=== PATIENT | male | born 1955 | race Caucasian/White ===

== ENCOUNTER 2022-04-12 12:25 | Inpatient (IN) | payer MEDICARE, MEDICAID ==
[~2022-04-12] VITALS: Ht 172.7 cm; Wt 56.3 kg
[2022-04-12] MEDS ORDERED: ONDANSETRON HCL 4 MG/2 ML VIAL IV ONE (13:30)
[2022-04-12] MEDS ORDERED: MORPHINE SULFATE 4 MG/ML SYR/VIAL IV ONE (13:30)
[2022-04-12 14:48] LABS: INR 1.14 (0.9-1.15); Partial Thromboplastin Time 31.4 sec (24.6-33.4)
[2022-04-12 15:01] LABS: Albumin 1.9 g/dL (3.4-5.0); Calcium 7.8 mg/dL (8.5-10.1); Potassium 4.7 mmol/L (3.5-5.1)
[2022-04-12 15:08] LABS: BUN/Creatinine Ratio 23.2; Bilirubin, Total 0.6 mg/dL (0.2-1.0); CRP High Sensitivity 11.7 mg/dL (< 0.3); Total Protein 7.2 g/dL (6.4-8.2)
[2022-04-12 15:22] LABS: Eosinophils # (auto) 0 10 ^3/uL (0-0.8); Lymphocytes # (auto) 1.3 10 ^3/uL (0.4-5.4); Mean Corpuscular Volume 83.8 fL (80.0-100.0); Monocytes # (auto) 1.6 10 ^3/uL (0-1.3); Neutrophils % (auto) 83.9 % (37.0-80.0); White Blood Cell 19.1 10^3/uL (4.4-10.8)
[2022-04-12 15:24] LABS: Basophils # (auto) 0.1 10 ^3/uL (0-0.2); Basophils % (auto) 0.7 % (0.0-2.0); Eosinophils % (auto) 0.1 % (0.0-7.0); Hematocrit 31.5 % (41.0-53.0); Mean Corpuscular Hemoglobin 26.6 pg (28.0-32.0); Mean Corpuscular Hgb Conc. 31.7 g/dL (32.0-36.0); Monocytes % (auto) 8.3 % (0.0-12.0); Nucleated Red Blood Cells % 0.1 %; Red Blood Cells 3.76 10^6/uL (4.5-5.90); Red Cell Distribution Width 14.4 % (11.8-14.3)
[2022-04-12] MEDS ORDERED: CEFEPIME 2 GM in SODIUM CHL 0.9% 50 ML IV ONE (16:30)
[2022-04-12] MEDS ORDERED: VANCOMYCIN PER PHARMACY 0 MG IV SCH (16:30)
[2022-04-12] MEDS ORDERED: DOCUSATE SOD 100 MG CAP PO PRN (17:00)
[2022-04-12] MEDS ORDERED: ACETAMINOPHEN 325 MG TAB PO PRN (17:00)
[2022-04-12] MEDS ORDERED: ONDANSETRON HCL 4 MG/2 ML VIAL IV PRN (17:00)
[2022-04-12] MEDS: SODIUM CHLORIDE 0.9% 1,000 ML IV SCH ×3 (17:00→19:07)
[2022-04-12] MEDS: VANCOMYCIN 750mg/250ml 250 ML IV SCH (18:00)
[2022-04-13 06:29] LABS: Basophils # (auto) 0.1 10 ^3/uL (0-0.2); Basophils % (auto) 0.4 % (0.0-2.0); Eosinophils # (auto) 0 10 ^3/uL (0-0.8); Eosinophils % (auto) 0.1 % (0.0-7.0); Hemoglobin 10.4 g/dL (13.5-17.5); Red Cell Distribution Width 14.4 % (11.8-14.3)
[2022-04-13 06:33] LABS: Hematocrit 31.9 % (41.0-53.0); Lymphocytes # (auto) 1.3 10 ^3/uL (0.4-5.4); Lymphocytes % (auto) 7.6 % (10.0-50.0); Mean Corpuscular Hgb Conc. 32.5 g/dL (32.0-36.0); Monocytes # (auto) 1.3 10 ^3/uL (0-1.3); Monocytes % (auto) 7.7 % (0.0-12.0); Neutrophils # (auto) 14.7 10 ^3/uL (1.6-8.6); Neutrophils % (auto) 84.2 % (37.0-80.0); Nucleated Red Blood Cells % 0.1 %; Red Blood Cells 3.85 10^6/uL (4.5-5.90); White Blood Cell 17.4 10^3/uL (4.4-10.8)
[2022-04-13 06:49] LABS: BUN/Creatinine Ratio 26.7; Calcium 7.8 mg/dL (8.5-10.1)
[2022-04-13 07:01] LABS: Albumin 1.7 g/dL (3.4-5.0); Bilirubin, Total 0.4 mg/dL (0.2-1.0); Total Protein 6.2 g/dL (6.4-8.2)
[2022-04-13] MEDS: PIPERACILLIN-TAZOB 3.375GM 100 ML IV SCH ×3 (09:37→22:15)
[2022-04-13] MEDS ORDERED: ENOXAPARIN SOD 40 MG/0.4 ML SYRINGE SC SCH (10:00)
[2022-04-13] MEDS: ATORVASTATIN 20 MG TAB PO SCH (11:15)
[2022-04-13] MEDS: CLOPIDOGREL BISULFATE 75 MG TAB PO SCH (11:16)
[2022-04-13] MEDS: VANCOMYCIN 750mg/250ml 250 ML IV SCH (12:46)
[2022-04-13] MEDS ORDERED: HEPARIN SODIUM (PORCINE) 5000 UNITS/ML 1ML VIAL IV ONE (14:00)
[2022-04-13] MEDS ORDERED: HEPARIN DRIP/D5W 100UNITS/ML 250 ML IV SCH ×2 (14:26→16:00)
[2022-04-13 14:40] LABS: Cholesterol 104 mg/dL (< 200)
[2022-04-13 14:43] LABS: HDL Cholesterol 23 mg/dL (40-59); LDL Cholesterol 73 mg/dL (< 100); Triglycerides 58 mg/dL (< 150)
[2022-04-13 14:51] LABS: INR 1.19 (0.9-1.15)
[2022-04-13] MEDS: ALBUMIN 25% 100 ML IV SCH ×2 (15:50→20:55)
[2022-04-13 16:51] LABS: Basophils # (auto) 0.1 10 ^3/uL (0-0.2); Basophils % (auto) 0.6 % (0.0-2.0); Eosinophils # (auto) 0 10 ^3/uL (0-0.8); Eosinophils % (auto) 0.2 % (0.0-7.0); Hematocrit 28.8 % (41.0-53.0); Hemoglobin 9.4 g/dL (13.5-17.5); Lymphocytes # (auto) 1.3 10 ^3/uL (0.4-5.4); Lymphocytes % (auto) 7.6 % (10.0-50.0); Mean Corpuscular Hemoglobin 27.7 pg (28.0-32.0); Mean Corpuscular Hgb Conc. 32.8 g/dL (32.0-36.0); Mean Corpuscular Volume 84.3 fL (80.0-100.0); Monocytes # (auto) 1.3 10 ^3/uL (0-1.3); Monocytes % (auto) 7.8 % (0.0-12.0); Neutrophils # (auto) 13.9 10 ^3/uL (1.6-8.6); Neutrophils % (auto) 83.8 % (37.0-80.0); Nucleated Red Blood Cells % 0.1 %; Red Blood Cells 3.41 10^6/uL (4.5-5.90); Red Cell Distribution Width 14.7 % (11.8-14.3); White Blood Cell 16.6 10^3/uL (4.4-10.8)
[2022-04-13 17:26] LABS: BUN/Creatinine Ratio 26.3; Calcium 7.3 mg/dL (8.5-10.1); Potassium 3.9 mmol/L (3.5-5.1)
[2022-04-13] MEDS ORDERED: ENOXAPARIN SOD 60 MG/0.6 ML SYRINGE SC SCH (22:00)
[2022-04-14] VITALS (7 sets, daily range): BP systolic 96–135; BP diastolic 55–69
[2022-04-14 00:04] LABS: INR 1.16 (0.9-1.15); Partial Thromboplastin Time 60.2 sec (24.6-33.4)
[2022-04-14 00:20] LABS: Alcohol, Urine < 3.0 mg/dL (0-10); Amphetamine Screen, Urine NEGATIVE (NEGATIVE); Barbiturate Scree,Urine NEGATIVE (NEGATIVE); Benzodiazephine Screen, Urine NEGATIVE (NEGATIVE); Cannabinoid Screen, Urine NEGATIVE (NEGATIVE); Cocaine Screen, Urine NEGATIVE (NEGATIVE); Opiate Scree,Urine NEGATIVE (NEGATIVE); Phencyclidine Screen, Urine NEGATIVE (NEGATIVE)
[2022-04-14] MEDS: MORPHINE SULFATE INJ 2 MG/ml SYRG IV PRN (00:45)
[2022-04-14] MEDS: VANCOMYCIN 750mg/250ml 250 ML IV SCH ×2 (01:26→13:00)
[2022-04-14 01:34] LABS: Urine Bacteria NONE SEEN /hpf (None Seen); Urine Blood Negative /uL (Negative); Urine Mucus FEW (None Seen); Urine Specific Gravity 1.028 (1.001-1.035); Urine WBC 1 /hpf (0 - 3)
[2022-04-14] MEDS: SODIUM CHLORIDE 0.9% 1,000 ML IV SCH ×2 (03:21→21:24)
[2022-04-14] MEDS: ALBUMIN 25% 100 ML IV SCH (03:52)
[2022-04-14 05:14] LABS: INR 1.15 (0.9-1.15); Partial Thromboplastin Time 49.5 sec (24.6-33.4)
[2022-04-14] MEDS: PIPERACILLIN-TAZOB 3.375GM 100 ML IV SCH ×3 (06:17→22:36)
[2022-04-14 07:21] LABS: Albumin 2.6 g/dL (3.4-5.0); BUN/Creatinine Ratio 16.7; Calcium 7.7 mg/dL (8.5-10.1); Phosphorus 2.9 mg/dL (2.5-4.90); Potassium 3.6 mmol/L (3.5-5.1)
[2022-04-14] MEDS: CLOPIDOGREL BISULFATE 75 MG TAB PO SCH (10:00)
[2022-04-14] MEDS ORDERED: SACUBITRIL-VALSARTAN 24mg/26mg TAB PO ONE (10:45)
[2022-04-14] MEDS ORDERED: DAPAGLIFLOZIN 5 MG TAB PO ONE (10:45)
[2022-04-14] MEDS ORDERED: CARVEDILOL 3.125 MG TAB PO ONE (10:45)
[2022-04-14] MEDS ORDERED: IODIXANOL 320MG/ML 100ML BTL IV ONE ×3 (12:11→16:56)
[2022-04-14] MEDS ORDERED: fentaNYL CITRATE 100 MCG/2 ML VL ONE (12:26)
[2022-04-14] MEDS ORDERED: LIDOCAINE HCL 100 MG/5ML (2%) SYRG INJ IV ONE (12:26)
[2022-04-14] MEDS ORDERED: ANGIOMAX 250 MG VIAL IV ONE ×2 (12:26→15:12)
[2022-04-14] MEDS ORDERED: MIDAZOLAM HCL 2MG/2ML 2ml VIAL (1mg/ml) ONE ×2 (12:26→15:16)
[2022-04-14] MEDS ORDERED: SODIUM CHL 0.9% 50 ML ONE ×2 (12:27→15:12)
[2022-04-14] MEDS ORDERED: LIDOCAINE 2%HCL (LOCAL ANESTH.) INJ 10ml MDV ONE (12:29)
[2022-04-14] MEDS ORDERED: hydrALAZINE HCL 20 MG/ML VL ONE ×2 (12:58→13:48)
[2022-04-14] MEDS ORDERED: VERAPAMIL 2.5MG/ML INJ 2ML VIAL IV ONE (13:51)
[2022-04-14] MEDS ORDERED: LABETALOL HCL 5 MG/ML ML 20ML VIAL IV ONE (14:34)
[2022-04-14] MEDS ORDERED: HYDROmorphone HCL 2 MG/ML VL/or syr ONE (16:14)
[2022-04-14] MEDS ORDERED: CLOPIDOGREL 300 MG TAB ONE (17:30)
[2022-04-14] MEDS ORDERED: IBUP600T27 PO (20:59)
[2022-04-14] MEDS ORDERED: GABA100C9 PO (20:59)
[2022-04-14] MEDS: ASPirin 81 mg TAB PO SCH (21:22)
[2022-04-14] MEDS: ATORVASTATIN 20 MG TAB PO SCH (21:23)
[2022-04-14] MEDS: CARVEDILOL 3.125 MG TAB PO SCH (22:37)
[2022-04-14] MEDS: SACUBITRIL-VALSARTAN 24mg/26mg TAB PO SCH (22:38)
[2022-04-15] MEDS: VANCOMYCIN 750mg/250ml 250 ML IV SCH ×2 (02:35→13:31)
[2022-04-15 05:00] VITALS: BP 86/50
[2022-04-15 05:15] VITALS: BP 103/57
[2022-04-15] MEDS: PIPERACILLIN-TAZOB 3.375GM 100 ML IV SCH ×3 (05:31→22:16)
[2022-04-15 06:06] LABS: Anion Gap 8 (5-15); Blood Urea Nitrogen 13 mg/dL (7-18); Calcium 7.6 mg/dL (8.5-10.1); Carbon Dioxide 24 mmol/L (21-32); Chloride 104 mmol/L (98-107); Glucose 130 mg/dL (74-106); Potassium 3.7 mmol/L (3.5-5.1); Sodium 136 mmol/L (136-145)
[2022-04-15 06:09] LABS: BUN/Creatinine Ratio 16.9; GFR African American 129 mL/min; GFR Non-African American 106 mL/min
[2022-04-15 09:00] VITALS: BP 109/60
[2022-04-15] MEDS: CARVEDILOL 3.125 MG TAB PO SCH ×2 (10:00→23:08)
[2022-04-15] MEDS: ASPirin 81 mg TAB PO SCH (11:07)
[2022-04-15] MEDS: ATORVASTATIN 20 MG TAB PO SCH (11:08)
[2022-04-15] MEDS: DAPAGLIFLOZIN 5 MG TAB PO SCH (11:08)
[2022-04-15] MEDS: SACUBITRIL-VALSARTAN 24mg/26mg TAB PO SCH ×2 (11:08→22:16)
[2022-04-15] MEDS: SODIUM CHLORIDE 0.9% 1,000 ML IV SCH (11:09)
[2022-04-15] MEDS: CLOPIDOGREL BISULFATE 75 MG TAB PO SCH (11:09)
[2022-04-15 17:00] VITALS: BP 112/63
[2022-04-15 22:00] VITALS: BP 100/56
[2022-04-15] MEDS: HYDROcodone-ACET 5/325MG TAB PO PRN (22:17)
[2022-04-16] VITALS (16 sets, daily range): BP systolic 92–135; BP diastolic 33–69
[2022-04-16] MEDS: VANCOMYCIN 750mg/250ml 250 ML IV SCH ×2 (01:12→18:54)
[2022-04-16] MEDS: PIPERACILLIN-TAZOB 3.375GM 100 ML IV SCH ×2 (05:37→18:07)
[2022-04-16] MEDS: SODIUM CHLORIDE 0.9% 1,000 ML IV SCH ×2 (05:37→19:00)
[2022-04-16] MEDS: SACUBITRIL-VALSARTAN 24mg/26mg TAB PO SCH ×2 (09:12→22:00)
[2022-04-16] MEDS: CARVEDILOL 3.125 MG TAB PO SCH ×2 (09:13→21:31)
[2022-04-16] MEDS: DAPAGLIFLOZIN 5 MG TAB PO SCH (09:14)
[2022-04-16] MEDS: ATORVASTATIN 20 MG TAB PO SCH (09:14)
[2022-04-16] MEDS: CLOPIDOGREL BISULFATE 75 MG TAB PO SCH (09:14)
[2022-04-16] MEDS: ASPirin 81 mg TAB PO SCH (09:15)
[2022-04-16] MEDS ORDERED: NICOTINE 14 MG/24HR TOPICAL PATCH TD SCH (10:00)
[2022-04-16] MEDS ORDERED: BUPIVACAINE HCL 0.25% P/F 10 ML VIAL ONE (11:54)
[2022-04-16] MEDS ORDERED: MIDAZOLAM HCL 2MG/2ML 2ml VIAL (1mg/ml) ONE (11:57)
[2022-04-16] MEDS ORDERED: fentaNYL CITRATE 100 MCG/2 ML VL ONE (11:57)
[2022-04-16] MEDS ORDERED: ceFAZolin 1GM/50ML 100 ML IV ONE (12:00)
[2022-04-16] MEDS ORDERED: PROPOFOL 10 MG/ML 20 ML IV ONE (12:40)
[2022-04-16] MEDS ORDERED: KETAMINE HCL 10 ML ONE (12:40)
[2022-04-16] MEDS ORDERED: diphenhdrAMINE HCL 50 MG/1 ML VL ONE (12:40)
[2022-04-16] MEDS ORDERED: DexAMETHasone SOD PHOS 10MG/1ML VIAL INJ ONE (12:40)
[2022-04-16] MEDS ORDERED: LIDOCAINE W/ EPINEPHRINE 2% INJ 20ML VIAL ONE (12:52)
[2022-04-16] MEDS ORDERED: LIDOCAINE 1%HCL (LOCAL ANESTH) 10 ML MDV ONE (12:52)
[2022-04-16] MEDS ORDERED: CALCIUM CHL(10%) 100MG/ML 10ML VIAL IV ONE (12:58)
[2022-04-16] MEDS ORDERED: NOREPINEPHRINE 8 MG/250ML KIT 250 ML IV ONE (13:00)
[2022-04-16] MEDS ORDERED: MIDAZOLAM HCL 2MG/2ML 2ml VIAL (1mg/ml) IV PRN (14:15)
[2022-04-16] MEDS ORDERED: ePHEDrine SULFATE 50 MG/ML AMP IV PRN (14:15)
[2022-04-16] MEDS ORDERED: LABETALOL HCL 5 MG/ML 4ML SYRINGE IV PRN (14:15)
[2022-04-16] MEDS ORDERED: MORPHINE SULFATE 4 MG/ML SYR/VIAL IV PRN (14:15)
[2022-04-16] MEDS ORDERED: HYDROmorphone HCL 2 MG/ML VL/or syr IV PRN (14:15)
[2022-04-16] MEDS ORDERED: ONDANSETRON HCL 4 MG/2 ML VIAL IV PRN (14:15)
[2022-04-16] MEDS ORDERED: METOPROLOL TARTRATE 1MG/1ML-5ML VIAL IV ONE (15:30)
[2022-04-16] MEDS: MORPHINE SULFATE INJ 2 MG/ml SYRG IV PRN (23:15)
[2022-04-17] VITALS (24 sets, daily range): BP systolic 87–169; BP diastolic 32–68
[2022-04-17] MEDS: HYDROcodone-ACET 5/325MG TAB PO PRN ×5 (01:03→19:50)
[2022-04-17] MEDS: PIPERACILLIN-TAZOB 3.375GM 100 ML IV SCH ×2 (01:43→10:10)
[2022-04-17] MEDS: VANCOMYCIN 750mg/250ml 250 ML IV SCH (05:04)
[2022-04-17 07:32] LABS: BUN/Creatinine Ratio 18.2; Calcium 7.3 mg/dL (8.5-10.1); Phosphorus 3.4 mg/dL (2.5-4.90); Potassium 3.5 mmol/L (3.5-5.1)
[2022-04-17 07:33] LABS: Albumin 1.7 g/dL (3.4-5.0)
[2022-04-17 09:42] LABS: Basophils # (auto) 0 10 ^3/uL (0-0.2); Hemoglobin 9.6 g/dL (13.5-17.5); Mean Corpuscular Volume 84.1 fL (80.0-100.0); Monocytes # (auto) 1.2 10 ^3/uL (0-1.3); Monocytes % (auto) 8.5 % (0.0-12.0)
[2022-04-17 09:44] LABS: Basophils % (auto) 0.3 % (0.0-2.0); Eosinophils # (auto) 0 10 ^3/uL (0-0.8); Eosinophils % (auto) 0.3 % (0.0-7.0); Hematocrit 30.1 % (41.0-53.0); Mean Corpuscular Hemoglobin 26.9 pg (28.0-32.0); Neutrophils # (auto) 12.2 10 ^3/uL (1.6-8.6); Neutrophils % (auto) 83.9 % (37.0-80.0); Red Blood Cells 3.58 10^6/uL (4.5-5.90); Red Cell Distribution Width 14.6 % (11.8-14.3); White Blood Cell 14.5 10^3/uL (4.4-10.8)
[2022-04-17] MEDS ORDERED: MEROPENEM 500MG IVPB 50 ML IV SCH (10:00)
[2022-04-17] MEDS: DAPAGLIFLOZIN 5 MG TAB PO SCH (10:10)
[2022-04-17] MEDS: CARVEDILOL 3.125 MG TAB PO SCH ×2 (10:11→21:30)
[2022-04-17] MEDS: ATORVASTATIN 20 MG TAB PO SCH (10:12)
[2022-04-17] MEDS: ASPirin 81 mg TAB PO SCH (10:12)
[2022-04-17] MEDS: CLOPIDOGREL BISULFATE 75 MG TAB PO SCH (10:12)
[2022-04-17] MEDS: NICOTINE 21MG/24 HR TOPICAL PATCH TD SCH (10:14)
[2022-04-17] MEDS: SACUBITRIL-VALSARTAN 24mg/26mg TAB PO SCH ×2 (11:25→22:00)
[2022-04-17] MEDS: SODIUM CHLORIDE 0.9% 1,000 ML IV SCH (13:40)
[2022-04-17] MEDS: MEROPENEM 500MG IVPB 50 ML IV SCH (13:41)
[2022-04-17] MEDS ORDERED: PIPERACILLIN-TAZOB 3.375GM 100 ML IV SCH (15:30)
[2022-04-17] MEDS: IBUPROFEN 600 MG TAB PO SCH ×2 (15:30→21:29)
[2022-04-17] MEDS: RIVAROXABAN 10 MG TAB PO SCH (21:30)
[2022-04-18] VITALS (10 sets, daily range): BP systolic 102–143; BP diastolic 44–63
[2022-04-18] MEDS: SODIUM CHLORIDE 0.9% 1,000 ML IV SCH ×2 (00:30→02:49)
[2022-04-18] MEDS: HYDROcodone-ACET 5/325MG TAB PO PRN ×5 (00:41→22:58)
[2022-04-18] MEDS: MEROPENEM 500MG IVPB 50 ML IV SCH ×2 (00:42→11:36)
[2022-04-18] MEDS: IBUPROFEN 600 MG TAB PO SCH ×4 (05:49→22:03)
[2022-04-18] MEDS: DAPAGLIFLOZIN 5 MG TAB PO SCH (09:46)
[2022-04-18] MEDS: SACUBITRIL-VALSARTAN 24mg/26mg TAB PO SCH ×2 (09:46→21:59)
[2022-04-18] MEDS: CARVEDILOL 3.125 MG TAB PO SCH ×2 (09:46→22:03)
[2022-04-18] MEDS: ATORVASTATIN 20 MG TAB PO SCH (09:47)
[2022-04-18] MEDS: NICOTINE 21MG/24 HR TOPICAL PATCH TD SCH (09:47)
[2022-04-18] MEDS: RIVAROXABAN 10 MG TAB PO SCH ×2 (09:47→22:03)
[2022-04-18] MEDS: CLOPIDOGREL BISULFATE 75 MG TAB PO SCH (09:47)
[2022-04-19] MEDS: MEROPENEM 500MG IVPB 50 ML IV SCH ×3 (00:23→21:48)
[2022-04-19] MEDS: HYDROcodone-ACET 5/325MG TAB PO PRN ×2 (04:39→21:36)
[2022-04-19 05:00] VITALS: BP 133/73
[2022-04-19] MEDS: IBUPROFEN 600 MG TAB PO SCH ×3 (06:02→22:25)
[2022-04-19 09:00] VITALS: BP 100/51
[2022-04-19] MEDS: DAPAGLIFLOZIN 5 MG TAB PO SCH (09:59)
[2022-04-19] MEDS: RIVAROXABAN 10 MG TAB PO SCH ×2 (09:59→21:38)
[2022-04-19] MEDS: SACUBITRIL-VALSARTAN 24mg/26mg TAB PO SCH ×2 (09:59→21:37)
[2022-04-19] MEDS: ATORVASTATIN 20 MG TAB PO SCH (10:00)
[2022-04-19] MEDS: CARVEDILOL 3.125 MG TAB PO SCH ×2 (10:00→21:37)
[2022-04-19] MEDS: levoFLOXacin 500MG 100 ML IV SCH (10:00)
[2022-04-19] MEDS: CLOPIDOGREL BISULFATE 75 MG TAB PO SCH (10:00)
[2022-04-19] MEDS: NICOTINE 21MG/24 HR TOPICAL PATCH TD SCH (10:01)
[2022-04-19 11:51] LABS: INR 1.27 (0.9-1.15); Partial Thromboplastin Time 46.4 sec (24.6-33.4)
[2022-04-19 12:30] VITALS: BP 90/52
[2022-04-19] MEDS ORDERED: LIDOCAINE 1% (LOCAL ANESTH.) PF 5ml SDV ID ONE (14:30)
[2022-04-19] MEDS: SODIUM CHLORIDE 0.9% 1,000 ML IV SCH (15:40)
[2022-04-19 17:00] VITALS: BP 104/58
[2022-04-19] MEDS: SODIUM CHLOR 0.9% PF (SALINE LOCK) 10ML VIAL/SYR IV SCH (21:37)
[2022-04-20] MEDS: HYDROcodone-ACET 5/325MG TAB PO PRN ×4 (02:02→20:29)
[2022-04-20 02:03] VITALS: BP 113/70
[2022-04-20 05:00] VITALS: BP 135/60
[2022-04-20] MEDS: IBUPROFEN 600 MG TAB PO SCH ×3 (05:44→22:33)
[2022-04-20] MEDS: SODIUM CHLORIDE 0.9% 1,000 ML IV SCH (06:54)
[2022-04-20 09:00] VITALS: BP 130/68
[2022-04-20] MEDS: levoFLOXacin 500MG 100 ML IV SCH (09:19)
[2022-04-20] MEDS: SODIUM CHLOR 0.9% PF (SALINE LOCK) 10ML VIAL/SYR IV SCH ×2 (09:20→22:18)
[2022-04-20] MEDS: CLOPIDOGREL BISULFATE 75 MG TAB PO SCH (09:21)
[2022-04-20] MEDS: CARVEDILOL 3.125 MG TAB PO SCH ×2 (09:21→22:22)
[2022-04-20] MEDS: ATORVASTATIN 20 MG TAB PO SCH (09:21)
[2022-04-20] MEDS: DAPAGLIFLOZIN 5 MG TAB PO SCH (09:21)
[2022-04-20] MEDS: SACUBITRIL-VALSARTAN 24mg/26mg TAB PO SCH ×2 (09:21→22:22)
[2022-04-20] MEDS: RIVAROXABAN 10 MG TAB PO SCH ×2 (09:22→22:33)
[2022-04-20] MEDS: NICOTINE 21MG/24 HR TOPICAL PATCH TD SCH (09:24)
[2022-04-20] MEDS: MEROPENEM 500MG IVPB 50 ML IV SCH ×2 (12:34→22:33)
[2022-04-20 13:00] VITALS: BP 137/69
[2022-04-20 17:00] VITALS: BP 138/71
[2022-04-20 22:00] VITALS: BP 127/72
[2022-04-21] MEDS: HYDROcodone-ACET 5/325MG TAB PO PRN ×2 (02:09→10:17)
[2022-04-21] MEDS: IBUPROFEN 600 MG TAB PO SCH ×2 (06:03→14:36)
[2022-04-21] MEDS: SODIUM CHLORIDE 0.9% 1,000 ML IV SCH (06:04)
[2022-04-21 08:54] VITALS: BP 137/70
[2022-04-21] MEDS ORDERED: ERTAPENEM SOD INJ 1 GM in SODIUM CHL 0.9% 50 ML IV SCH (10:00)
[2022-04-21] MEDS: levoFLOXacin 500MG 100 ML IV SCH (10:16)
[2022-04-21] MEDS: SACUBITRIL-VALSARTAN 24mg/26mg TAB PO SCH (10:17)
[2022-04-21] MEDS: NICOTINE 21MG/24 HR TOPICAL PATCH TD SCH (10:17)
[2022-04-21] MEDS: ATORVASTATIN 20 MG TAB PO SCH (10:20)
[2022-04-21] MEDS: RIVAROXABAN 10 MG TAB PO SCH (10:20)
[2022-04-21] MEDS: CLOPIDOGREL BISULFATE 75 MG TAB PO SCH (10:20)
[2022-04-21] MEDS: CARVEDILOL 3.125 MG TAB PO SCH (10:21)
[2022-04-21] MEDS: SODIUM CHLOR 0.9% PF (SALINE LOCK) 10ML VIAL/SYR IV SCH (10:21)
[2022-04-21] MEDS: DAPAGLIFLOZIN 5 MG TAB PO SCH (12:03)
[2022-04-21 12:38] VITALS: BP 138/73
[2022-04-21 15:30] VITALS: BP 138/73
[2022-04-21 16:46] VITALS: BP 146/70
== END 2022-04-21 17:39 | DRG 710 ==
LOC: ER 12:25 → OVERFLOW 17:04 → EAST 04-14 12:48 → DOU IN ICU 04-14 14:25 → EAST 04-14 19:15 → DOU IN ICU 04-16 15:10 → CENTRAL 04-18 05:34 → TELE-CENTR 04-18 05:51
PROVIDERS: ADMIT Internal Medicine; ATTEND Family Medicine
PROC: 047C3DZ Dilation of Right Common Iliac Artery with Intraluminal Device, Percutaneous Approach (ICD-10-PCS; 2022-04-14)
PROC: 047K3ZZ Dilation of Right Femoral Artery, Percutaneous Approach (ICD-10-PCS; 2022-04-14)
PROC: 047M3ZZ Dilation of Right Popliteal Artery, Percutaneous Approach (ICD-10-PCS; 2022-04-14)
PROC: 047L3DZ Dilation of Left Femoral Artery with Intraluminal Device, Percutaneous Approach (ICD-10-PCS; 2022-04-14)
PROC: 047D3DZ Dilation of Left Common Iliac Artery with Intraluminal Device, Percutaneous Approach (ICD-10-PCS; 2022-04-14)
PROC: 047L34Z Dilation of Left Femoral Artery with Drug-eluting Intraluminal Device, Percutaneous Approach (ICD-10-PCS; 2022-04-14)
PROC: B41GYZZ Fluoroscopy of Left Lower Extremity Arteries using Other Contrast (ICD-10-PCS; 2022-04-14)
PROC: B41FYZZ Fluoroscopy of Right Lower Extremity Arteries using Other Contrast (ICD-10-PCS; 2022-04-14)
PROC: 0Y6J0Z3 Detachment at Left Lower Leg, Low, Open Approach (ICD-10-PCS; principal; 2022-04-16 12:05)
PROC: 02HV33Z Insertion of Infusion Device into Superior Vena Cava, Percutaneous Approach (ICD-10-PCS; 2022-04-19)
DX: A41.01 Sepsis due to Methicillin susceptible Staphylococcus aureus (principal); L89.153 Pressure ulcer of sacral region, stage 3; A48.0 Gas gangrene; E46 Unspecified protein-calorie malnutrition; I11.0 Hypertensive heart disease with heart failure; L03.116 Cellulitis of left lower limb; E87.1 Hypo-osmolality and hyponatremia; I50.22 Chronic systolic (congestive) heart failure; B96.5 Pseudomonas (aeruginosa) (mallei) (pseudomallei) as the cause of diseases classified elsewhere; D64.9 Anemia, unspecified; F20.9 Schizophrenia, unspecified; E78.00 Pure hypercholesterolemia, unspecified; F17.200 Nicotine dependence, unspecified, uncomplicated; Z20.822 Contact with and (suspected) exposure to COVID-19; R33.9 Retention of urine, unspecified; G62.9 Polyneuropathy, unspecified; I25.10 Atherosclerotic heart disease of native coronary artery without angina pectoris; R73.03 Prediabetes; Z79.02 Long term (current) use of antithrombotics/antiplatelets; Z79.01 Long term (current) use of anticoagulants; Z89.512 Acquired absence of left leg below knee; Z91.19 Patient's noncompliance with other medical treatment and regimen; Z79.899 Other long term (current) drug therapy; Z71.6 Tobacco abuse counseling
CPT/HCPCS: 36415; 36569; 37221; 37224; 37226; 71045; 73700; 75716; 76775; 80048; 80053; 80061; 80069; 80202; 80307; 81001; 83036; 83880; 84154; 84443; 85025; 85610; 85652; 85730; 86141; 86850; 86900; 86901; 87040; 87077; 87186; 87205; 93005; 93306; 93926; 96365; 96375; 97163; 99152; 99153; C1874; G0378; J0690; J1100; J1335; J1956; J2001; J2185; J2250; J2405; J2543; J2704; J3490; P9047; Q9967